=== PATIENT | male | born 1965 | race Caucasian/White ===

== ENCOUNTER → 2016-08-27 | Outpatient (CLI) | payer BC ==
[~2016-08-27] MED LIST: AMARYL4 MG PO; BUSPIRONE HCL15 MG PO; BYSTOLIC20 MG PO; CRESTOR5 MG PO; DIOVAN320 MG PO; HUMALOG100 UNIT/3; INVOKANA300 MG PO; JANUVIA 100 MG100 MG PO; LEXAPRO20 MG PO; LOFIBRA200 MG PO; METFORMIN HCL1000 M1 PO; MOBIC15 MG PO; NORCO 5-325 TA1 EACH PO; NORVASC10 MG PO; PREVACID30 M1 PO; PROTONIX40 MG PO; VIAGRA50 MG PO; XANAX1 MG PO; ZANAFLEX4 MG PO
== END | disposition disaster alternative care site (69) ==
LOC: GOPD 08-26
PROC: 3E0S33Z Introduction of Anti-inflammatory into Epidural Space, Percutaneous Approach (ICD-10-PCS; principal; 2016-08-27)
PROC: 3E0S3BZ Introduction of Anesthetic Agent into Epidural Space, Percutaneous Approach (ICD-10-PCS; 2016-08-27)
DX: M51.36 Other intervertebral disc degeneration, lumbar region (principal); M51.37 Other intervertebral disc degeneration, lumbosacral region
CPT/HCPCS: J1040

== ENCOUNTER → 2016-11-11 | Day surgery (SDC) | payer BC ==
[~2016-11-11] VITALS: Ht 193 cm; Wt 116.7 kg
--- NOTE | ~2016-11-11 | OR ---
PATIENT'S NAME: DEANNE JULIEN [facility] AGE: 51 Y [address] ROOM: [place] [id number] LOCATION: [facility] – [place] ADMIT DATE: 11/11/2016 OR/Procedure Report DISCHARGE DATE: FAMILY PHYSICIAN: [place] Kenney MD ATTENDING PHYSICIAN: [place] Wyatt SURGEON: Ryan Manriqeu MD [employer]: DATE OF PROCEDURE: 11/11/2016 PROCEDURE: Left L4-L5 transforaminal epidural steroid injection. INDICATION: The patient has a low back pain, degenerative disk disease with left lower extremity radiculopathy. Risks and benefits were explained to the patient. He wished to proceed. He has radiculopathy that appears to be in the L4 and L5 nerve roots with the L4 being greater. This correlated with his MRI. We elected to do a left L4-L5 transforaminal epidural steroid injection. DESCRIPTION OF PROCEDURE: He was taken to procedure room, placed in prone position. Back was prepped with Betadine x3 and sterile drape applied over top. Fluoroscopy was used to identify the L4-L5 interspace. The skin was numbed with 3 mL of 1% lidocaine. Next, under fluoroscopic guidance, a 22- gauge 3.5 inch spinal needle with gentle manual bend was placed into position. Once it was felt to be in position, about 1.5 mL and 2 mL of contrast was injected in a total in the AP and lateral views. This showed a good epidural spread. No intravascular uptake. No intrathecal uptake. Then, a mixture of 2 mL of 2% lidocaine and 10 mg of preservative-free Decadron was injected without complication. Stylette placed and the needle withdrawn. Hemostasis achieved. The patient was having improvement of the symptoms immediately postoperatively. COMPLICATIONS: None. BLOOD LOSS: None. RYAN MANRIQUE MD JJP/modl /[id number] d: 11/11/162 t: 11/18/16 1250, OPERATIVE SUMMARY
== END | disposition disaster alternative care site (69) ==
LOC: GPOC 11-10 16:00 → GSDC 11-10 16:00
PROC: 3E0R3BZ Introduction of Anesthetic Agent into Spinal Canal, Percutaneous Approach (ICD-10-PCS; principal; 2016-11-11)
PROC: 3E0R33Z Introduction of Anti-inflammatory into Spinal Canal, Percutaneous Approach (ICD-10-PCS; 2016-11-11)
DX: M54.5 Low back pain (principal); M51.16 Intervertebral disc disorders with radiculopathy, lumbar region; I10 Essential (primary) hypertension; M48.06 Spinal stenosis, lumbar region; E78.00 Pure hypercholesterolemia, unspecified; G47.00 Insomnia, unspecified; F41.9 Anxiety disorder, unspecified; K21.9 Gastro-esophageal reflux disease without esophagitis; M15.9 Polyosteoarthritis, unspecified; E11.9 Type 2 diabetes mellitus without complications; Z88.8 Allergy status to other drugs, medicaments and biological substances; Z87.19 Personal history of other diseases of the digestive system; Z79.899 Other long term (current) drug therapy; Z98.890 Other specified postprocedural states; Z86.19 Personal history of other infectious and parasitic diseases
CPT/HCPCS: J1100